=== PATIENT | female | born 1985 | race African-American/Black ===

== ENCOUNTER 2017-01-04 01:15 | Emergency (ER) | payer MEDICAID ==
[~2017-01-04] VITALS: Ht 160 cm; Wt 147.9 kg
[2017-01-04 01:19] VITALS: BP 136/94; PULSE 97; RESP 16; TEMP 98; O2SAT 99
[2017-01-04] MEDS ORDERED: ALBU1.25 NEB (03:48)
[2017-01-04] MEDS ORDERED: VENTAER INH (03:48)
[2017-01-04] MEDS ORDERED: SODIUM CHLORIDE 0.9% FLUSH 5 ML FLUSH IVF PRN (04:15)
[2017-01-04 04:27] LABS: AUTOMATED NEUTROPHIL # 3.7 TH/MM3 (1.8-7.7); BASOPHIL # 0.1 TH/MM3 (0-0.2); BASOPHIL % 1.4 % (0.0-2.0); EOSINOPHIL # 0.3 TH/MM3 (0-0.4); EOSINOPHIL % 3.5 % (0.0-4.0); HEMO FLAGS DIFF FINAL; LYMPH % 42.9 % (9.0-44.0); LYMPHOCYTE # 3.4 TH/MM3 (1.0-4.8); MEAN CELL VOLUME 88.8 FL (80.0-100.0); MEAN CORPUSCULAR HGB CONC 33.8 % (32.0-36.0); MONO % 6.2 % (0.0-8.0); PLATELET COUNT 266 TH/MM3 (150-450); RED BLOOD COUNT 4.05 MIL/MM3 (4.00-5.30); RED CELL DISTRIBUTION WIDTH 14.7 % (11.6-17.2)
[2017-01-04 04:44] LABS: APTT (PATIENT) 28.7 SEC (24.3-30.1); PROTHROMBIN TIME - PATIENT 11.3 SEC (9.8-11.6)
[2017-01-04 04:56] LABS: ALKALINE PHOSPHATASE 65 U/L (45-117); ALT (GPT) 12 U/L (10-53); ANION GAP 9 MEQ/L (5-15); AST (GOT) 10 U/L (15-37); BICARBONATE 24.8 MEQ/L (21.0-32.0); BLOOD UREA NITROGEN 10 MG/DL (7-18); CHLORIDE 106 MEQ/L (98-107); GLOMERULAR FILTRATION RATE 81 ML/MIN (>89); MAGNESIUM 2.2 MG/DL (1.5-2.5); SODIUM (NA) 140 MEQ/L (136-145); TOTAL BILIRUBIN ADULT 0.5 MG/DL (0.2-1.0)
[2017-01-04 04:58] LABS: CREATINE KINASE 93 U/L (26-192); POTASSIUM 3.8 MEQ/L (3.5-5.1)
[2017-01-04 05:25] VITALS: BP_SYST 122; BP_SYST 124; BP_DIAS 60; PULSE 68; PULSE 69; RESP 18; O2SAT 100
--- NOTE | 2017-01-04 05:50 | RADRPT ---
EXAM DATE/TIME: 01/04/2017 05:09 [facility] COMPARISON: No previous studies available for comparison. INDICATIONS : Chest pain. MEDICAL HISTORY : None. SURGICAL HISTORY : None. ENCOUNTER: Initial ACUITY: 1 day PAIN SCORE: 7/10 LOCATION: Bilateral chest FINDINGS: A single view of the chest demonstrates the lungs to be symmetrically aerated without evidence of mas s, infiltrate or effusion. The cardiomediastinal contours are unremarkable. Osseous structures are intact. CONCLUSION: Normal examination. Jamarcus Manzano MD on January 04, 2017 at 5:48 Board Certified Radiologist. This report was verified electronically.
[2017-01-04] MEDS ORDERED: PRED20 PO (06:29)
--- NOTE | 2017-01-04 06:29 | PD ---
HPI Chief Complaint: Chest Pain Time Seen by Provider: 04:03 Travel History International Travel<30 days: No Contact w/Intl Traveler<30days: No Traveled to known affect area: No History of Present Illness HPI The patient is a 31 year old female who presents to the [facility] emergency department with a history of pressure in the anterior neck that she reports began 3 days ago. She reports that this evening it began to radiate down into her chest and woke her up. The patient reports that over the last 2 days she has used her inhaler more frequently. She denies having any cough or congestion otherwise. The patient reports that she has had a stress test done his past year in preparation for having a gastric sleeve for weight loss. She reports that the stress test was negative. She reports that she underwent a gastric sleeve on September 22, 2016. She denies having any problems with acid reflux or heartburn. She denies having any nausea, vomiting, or diarrhea. The patient does however report that her neck pressure is similar to when she had a thyroid abnormality previously. She reports that a year ago was last checked and found to be normal. She denies having any significant hot or cold sensitivities. The patient reports that her last bowel movement was yesterday. The patient denies any recent fevers, cough, congestion,abdominal pain, vomiting, diarrhea, urinary symptoms, or neurologic symptoms. COUNT INCLUDES THE [facility] Past Medical History Narrative Medical The patient's past medical history is significant for a thyroid abnormality first diagnosed 3 years ago and resolved on its own. The patient has a history of anxiety, asthma, depression, obesity. Asthma: Yes Anxiety: Yes Depression: Yes Gastrointestinal Disorders: Yes (gastric sleeve) Immunizations Current: Yes Influenza Vaccination: No ?: Not LMP: 12/10/17 : 2 Para: 2 Past Surgical History Narrative Surgical The patient's past surgical history is significant for a gastric sleeve, C- section 2. Social History Alcohol Use: Yes (rarely) Tobacco Use: Yes (6 cigarettes per day) Substance Use: No Allergies-Medications (Allergen,Severity, Reaction): Coded Allergies: No Known Allergies (Unverified , 01/04/17) Reported Meds & Prescriptions Reported Meds & Active Scripts Active Reported Albuterol Neb (Albuterol Sulfate) 1.25 Mg/3 Ml Neb 1.25 Mg NEB TID NEB PRN Ventolin Hfa 18 GM Inh (Albuterol Sulfate) 90 Mcg/Act Aer 2 Puff INH Q4-6H PRN Review of Systems Except as stated in HPI: all other systems reviewed are Neg General / Constitutional: No: Fever Eyes: No: Visual changes HENT: No: Headaches Cardiovascular: Positive: Chest Pain or Discomfort, Dyspnea on exertion Respiratory: Positive: Wheezing, No: Shortness of Breath Gastrointestinal: No: Nausea, Vomiting, Diarrhea, Abdominal Pain Genitourinary: No: Dysuria Musculoskeletal: No: Pain Skin: No Rash Neurologic: No: Weakness Psychiatric: No: Depression Endocrine: No: Polydipsia Hematologic/Lymphatic: No: Easy Bruising Physical Exam Narrative General: The patient is a well-developed well-nourished female in no acute distress. Head and Neck exam: Head is normocephalic atraumatic. Eyes: EOMI, pupils are equal round and reactive to light. Nose: Midline septum with pink mucous membranes Mouth: Dentition unremarkable. Moist mucus membranes. Posterior oropharynx is not erythematous. No tonsillar hypertrophy. Uvula midline. Airway patent. Neck: No palpable lymphadenopathy. No nuchal rigidity. No thyromegaly. Cardiovascular: Regular rate and rhythm without murmurs, gallops, or rubs. Lungs: Clear to auscultation bilaterally. No wheezes, rhonchi, or rales. Abdomen: Soft, without tenderness to palpation in all 4 quadrants of the abdomen. No guarding, rebound, or rigidity. normal bowel sounds are audible. No tenderness on palpation of McBurney's point. Negative Funes's sign. Extremities: No clubbing, cyanosis, or edema. No calf tenderness on palpation. Back: No spinous process tenderness to palpation. No costovertebral angle tenderness to palpation. Neurologic Exam: Grossly nonfocal. Skin Exam: No rash noted. Intact skin that is warm and dry. Data Data Last Documented VS Vital Signs Date Time Temp Pulse Resp B/P Pulse Ox O2 Delivery O2 Flow Rate FiO2 01/04/17 05:25 68 122/60 100 Room Air 01/04/17 05:25 18 01/04/17 01:19 98.0 Orders Electrocardiogram (01/04/17 01:28) B-Type Natriuretic Peptide (01/04/17 04:04) Ckmb (Isoenzyme) Profile (01/04/17 04:04) Complete Blood Count With Diff (01/04/17 04:04) Comprehensive Metabolic Panel (01/04/17 04:04) D-Dimer (01/04/17 04:04) Magnesium (Mg) (01/04/17 04:04) Prothrombin Time / Inr (Pt) (01/04/17 04:04) Act Partial Throm Time (Ptt) (01/04/17 04:04) Troponin I (01/04/17 04:04) Lipase (01/04/17 04:04) Chest, Single Ap (01/04/17 04:04) Ecg Monitoring (01/04/17 04:04) Bilateral Bp Monitoring (01/04/17 04:04) Iv Access Insert/Monitor (01/04/17 04:04) Oximetry (01/04/17 04:04) Oxygen Administration (01/04/17 04:04) Sodium Chloride 0.9% Flush (Ns Flush) (01/04/17 04:15) Ed Urine Pregnancytest Poc (01/04/17 04:04) Thyroid Stimulating Hormone (01/04/17 05:27) Labs Laboratory Tests Test 01/04/17 04:15 White Blood Count 8.0 TH/MM3 Red Blood Count 4.05 MIL/MM3 Hemoglobin 12.1 GM/DL Hematocrit 36.0 % Mean Corpuscular Volume 88.8 FL Mean Corpuscular Hemoglobin 30.0 PG Mean Corpuscular Hemoglobin 33.8 % Concent Red Cell Distribution Width 14.7 % Platelet Count 266 TH/MM3 Mean Platelet Volume 9.1 FL Neutrophils (%) (Auto) 46.0 % Lymphocytes (%) (Auto) 42.9 % Monocytes (%) (Auto) 6.2 % Eosinophils (%) (Auto) 3.5 % Basophils (%) (Auto) 1.4 % Neutrophils # (Auto) 3.7 TH/MM3 Lymphocytes # (Auto) 3.4 TH/MM3 Monocytes # (Auto) 0.5 TH/MM3 Eosinophils # (Auto) 0.3 TH/MM3 Basophils # (Auto) 0.1 TH/MM3 CBC Comment DIFF FINAL Differential Comment Prothrombin Time 11.3 SEC Prothromb Time International 1.0 RATIO Ratio Activated Partial 28.7 SEC Thromboplast Time D-Dimer Quantitative (PE/DVT) 0.22 MG/L FEU Sodium Level 140 MEQ/L Potassium Level 3.8 MEQ/L Chloride Level 106 MEQ/L Carbon Dioxide Level 24.8 MEQ/L Anion Gap 9 MEQ/L Blood Urea Nitrogen 10 MG/DL Creatinine 0.82 MG/DL Estimat Glomerular Filtration 81 ML/MIN Rate Random Glucose 77 MG/DL Calcium Level 9.1 MG/DL Magnesium Level 2.2 MG/DL Total Bilirubin 0.5 MG/DL Aspartate Amino Transf 10 U/L (AST/SGOT) Alanine Aminotransferase 12 U/L (ALT/SGPT) Alkaline Phosphatase 65 U/L Total Creatine Kinase 93 U/L Troponin I LESS THAN 0.02 NG/ML B-Type Natriuretic Peptide 22 PG/ML Total Protein 7.8 GM/DL Albumin 3.5 GM/DL Lipase 146 U/L Thyroid Stimulating Hormone 3.760 uIU/ML 3rd Gen [facility] Medical Decision Making Medical Screen Exam Complete: Yes Emergency Medical Condition: Yes Medical Record Reviewed: Yes Interpretation(s) Last Impressions Chest X-Ray 01/04/17 0404 Signed Impressions: Service Date/Time: Wednesday, January 04, 2017 05:09 - CONCLUSION: Normal examination. Jamarcus Manzano MD Differential Diagnosis Endocrine abnormalities such as thyroid abnormality, versus pulmonary embolism, versus acute coronary syndrome, versus asthma exacerbation, versus pneumonia Narrative Course During the course of the patients emergency department visit, the patients history, examination, and differential diagnosis were reviewed with the patient. The patient had IV access obtained and blood work sent for analysis. The patient was placed on a engine monitor with oximetry and blood pressure monitoring. The patient had an EKG done on arrival that shows a sinus rhythm heart rate of 82, no acute ST segment elevation, T waves inverted in V1, lead 3. The patients laboratory studies were reviewed and remarkable for a CBC that is within normal limits, CMP is remarkable for a GFR of 81, AST 10, CPK 93, troponin I less than 0.02, BNP is 22, TSH is elevated at 3.76, lipase 146. PT PTT within normal limits, d-dimer 0.2 to decrease the likelihood of pulmonary embolism in this patient with no other significant risk factors. Radiology studies were reviewed and remarkable for a chest x-ray that shows no acute abnormality. I suspect that the patient's symptoms are related to an elevated TSH, however the patient's TSH is only 0.0 2. elevated above normal. The patient was instructed to follow-up with her primary care physician for a full thyroid panel. The patient additionally reports that she has been using her inhaler more frequently. This could be part of the cause of the pressure that she was feeling. The patient will be given a prescription for short course of prednisone. The patient is resting comfortably and feels better, is alert and in no distress. The patients results and examination findings were discussed with the patient. The repeat examination is unremarkable and benign. The history, exam, diagnostic testing, and current condition do not suggest any significant pathology to warrant further testing, continued ED treatment, admission, or surgical evaluation at this point. The vital signs have been stable. The patient does not have uncontrollable pain, intractable vomiting, or other significant symptoms. The patient's condition is stable and appropriate for discharge. The patient will pursue further outpatient evaluation with a primary care physician or other designated or consulting physician as indicated in the discharge instructions. The patient expressed understanding and was agreeable with this plan. Diagnosis Primary Impression: Asthma exacerbation Additional Impression: Elevated TSH Referrals: Octavio Peralta MD 2 days Patient Instructions: Asthma (ED), General Instructions, Hypothyroidism (ED) Additional Instructions: The patient will need a repeat thyroid panel done within the next week. The patient is instructed to follow-up with her primary care physician for reexamination in the next 2 days. Med/Other Pt SpecificInfo: Prescription(s) given Scripts Prednisone 20 Mg Tab20 Mg PO BID #10 TAB Ref 0 Prov:Makenzie Wong MD 01/04/17 Disposition: 01 DISCHARGE HOME Condition: Stable Makenzie Wong MD Jan 04, 2017 06:29
--- NOTE | 2017-01-04 10:03 | EKG ---
Date Performed: 01/04/2017 Time Performed: 01:42:53 PTAGE: 31 years EKG: Sinus rhythm POSSIBLE RIGHT VENTRICULAR CONDUCTION DELAY BORDERLINE ECG NO PREVIOUS TRACING DOCTOR: Matt Galeas Interpretating Date/Time 01/04/2017 10:00:40
== END 2017-01-04 06:49 | disposition home or self-care (01) ==
LOC: NEPC 06:06
DX: J45.901 Unspecified asthma with (acute) exacerbation (principal); R94.31 Abnormal electrocardiogram [ECG] [EKG]; F17.210 Nicotine dependence, cigarettes, uncomplicated; R07.9 Chest pain, unspecified; R79.89 Other specified abnormal findings of blood chemistry; Z98.84 Bariatric surgery status
CPT/HCPCS: 71010; 80053; 82550; 83690; 83735; 83880; 84443; 84484; 84703; 85025; 85379; 85610; 85730; 93005

== ENCOUNTER 2017-03-23 23:19 | Emergency (ER) | payer MEDICAID ==
[~2017-03-23 23:19] MED LIST: ALBU1.25 NEB; PRED20 PO; VENTAER INH
[2017-03-23 23:20] VITALS: BP 133/93; PULSE 92; RESP 16; TEMP 98.6; O2SAT 96
[2017-03-23] MEDS ORDERED: VARE.5 PO (23:45)
[2017-03-23 23:56] VITALS: BP 140/86; PULSE 83; RESP 16; O2SAT 99
--- NOTE | 2017-03-24 00:14 | PD ---
HPI Chief Complaint: Chest Pain Time Seen by Provider: 00:02 Travel History International Travel<30 days: No Contact w/Intl Traveler<30days: No Traveled to known affect area: No History of Present Illness HPI 31yo F with PMH of obesity presents to the ED with c/o bilateral upper back pain for 3-4 days. Pain is worst with palpation and movement. Pt also with midsternal chest pain that is sharp and nonradiating for 3-4 days. Chest pain has improved on its own and feels different from back pain. Denies any fever, trauma, sob, n/v, abdominal pain, focal weakness or numbness. Denies any DVT/PE , oral contraception PFSH Past Medical History Asthma: Yes Anxiety: Yes Depression: Yes Gastrointestinal Disorders: Yes (gastric sleeve) Immunizations Current: Yes Influenza Vaccination: No ?: Not LMP: MAR 09 2017 : 2 Para: 2 Past Surgical History Abdominal Surgery: Yes (SLEEVE WEIGHLOSS IN DEC) Section: Yes (X 2) Social History Alcohol Use: Yes (rarely) Tobacco Use: Yes (6 cigarettes per day) Substance Use: No Allergies-Medications (Allergen,Severity, Reaction): Coded Allergies: No Known Allergies (Unverified , 03/23/17) Reported Meds & Prescriptions Reported Meds & Active Scripts Active Reported Chantix (Varenicline) 0.5 Mg Tab 0.5 Mg PO DAILY Days 1-3 Review of Systems Except as stated in HPI: all other systems reviewed are Neg Physical Exam Narrative GENERAL: 31yo F not in distress. SKIN: Focused skin assessment warm/dry. HEAD: Atraumatic. Normocephalic. CARDIOVASCULAR: Regular rate and rhythm. No murmur appreciated. RESPIRATORY: No accessory muscle use. Clear to auscultation. Breath sounds equal bilaterally. GASTROINTESTINAL: Abdomen soft, non-tender, nondistended. No rebound tenderness or guarding. MUSCULOSKELETAL: No obvious deformities. No clubbing. No cyanosis. No edema. No calf tenderness. NEUROLOGICAL: Awake and alert. No obvious cranial nerve deficits. Motor grossly within normal limits. Normal speech. PSYCHIATRIC: Appropriate mood and affect; insight and judgment normal. Data Data Last Documented VS Vital Signs Date Time Temp Pulse Resp B/P Pulse Ox O2 Delivery O2 Flow Rate FiO2 03/24/17 02:00 76 16 111/59 99 Room Air 03/23/17 23:20 98.6 Orders Electrocardiogram (03/24/17 00:10) Basic Metabolic Panel (Bmp) (03/24/17 00:10) Ckmb (Isoenzyme) Profile (03/24/17 00:10) Complete Blood Count With Diff (03/24/17 00:10) D-Dimer (03/24/17 00:10) Magnesium (Mg) (03/24/17 00:10) Prothrombin Time / Inr (Pt) (03/24/17 00:10) Act Partial Throm Time (Ptt) (03/24/17 00:10) Troponin I (03/24/17 00:10) Chest, Single Ap (03/24/17 00:10) Ecg Monitoring (03/24/17 00:10) Iv Access Insert/Monitor (03/24/17 00:10) Ibuprofen (Motrin) (03/24/17 00:15) Diazepam (Valium) (03/24/17 00:15) CKMB (03/24/17:23) CKMB% (03/24/17:23) Labs Laboratory Tests Test 03/24/17:23 White Blood Count 7.7 TH/MM3 Red Blood Count 3.74 MIL/MM3 Hemoglobin 10.9 GM/DL Hematocrit 32.9 % Mean Corpuscular Volume 87.9 FL Mean Corpuscular Hemoglobin 29.3 PG Mean Corpuscular Hemoglobin 33.3 % Concent Red Cell Distribution Width 13.4 % Platelet Count 301 TH/MM3 Mean Platelet Volume 7.7 FL Neutrophils (%) (Auto) 48.8 % Lymphocytes (%) (Auto) 39.0 % Monocytes (%) (Auto) 7.4 % Eosinophils (%) (Auto) 3.8 % Basophils (%) (Auto) 1.0 % Neutrophils # (Auto) 3.7 TH/MM3 Lymphocytes # (Auto) 3.0 TH/MM3 Monocytes # (Auto) 0.6 TH/MM3 Eosinophils # (Auto) 0.3 TH/MM3 Basophils # (Auto) 0.1 TH/MM3 CBC Comment DIFF FINAL Differential Comment Prothrombin Time 11.1 SEC Prothromb Time International 1.0 RATIO Ratio Activated Partial 28.5 SEC Thromboplast Time D-Dimer Quantitative (PE/DVT) 0.25 MG/L FEU Sodium Level 141 MEQ/L Potassium Level 3.9 MEQ/L Chloride Level 105 MEQ/L Carbon Dioxide Level 27.7 MEQ/L Anion Gap 8 MEQ/L Blood Urea Nitrogen 12 MG/DL Creatinine 0.87 MG/DL Estimat Glomerular Filtration 91 ML/MIN Rate Random Glucose 86 MG/DL Calcium Level 8.7 MG/DL Magnesium Level 2.1 MG/DL Total Creatine Kinase 125 U/L Creatine Kinase MB LESS THAN 0.5 NG/ML Troponin I LESS THAN 0.02 NG/ML MDM Medical Decision Making Medical Screen Exam Complete: Yes Emergency Medical Condition: Yes Interpretation(s) EKG: NSR 78bpm. Normal axis. No ST segment elevation or depression. Differential Diagnosis Musculoskeletal pain vs. atypical chest pain Narrative Course 31yo F with musculoskeletal pain. Labs reviewed, no leukocytosis. H/H mildly decrease at10.9/32.9. Troponin negative. D-dimer negative. Do not think chest pain is cardiac. CXR normal. Pt given valium and ibuprofen which helped with the pain. Return precautions given. Diagnosis Primary Impression: Atypical chest pain Patient Instructions: General Instructions Departure Forms: Tests/Procedures Additional Instructions: Please follow up with your PMD in 1-2 days. Return to the ED if symptoms worsen. Med/Other Pt SpecificInfo: Prescription(s) given Scripts Ibuprofen 600 Mg Gpc411 Mg PO Q8H PRN (PAIN) #20 TAB Ref 0 Prov:Tosin Cordova DO 03/24/17 Disposition: 01 DISCHARGE HOME Condition: Stable Tosin Cordova DO Mar 24, 2017 00:14
[2017-03-24] MEDS ORDERED: IBUPROFEN 600 MG TAB PO ONE (00:15)
[2017-03-24] MEDS ORDERED: DIAZEPAM 5 MG TAB PO ONE (00:15)
[2017-03-24 00:32] LABS: AUTOMATED NEUTROPHIL # 3.7 TH/MM3 (1.8-7.7); BASOPHIL # 0.1 TH/MM3 (0-0.2); EOSINOPHIL # 0.3 TH/MM3 (0-0.4); EOSINOPHIL % 3.8 % (0.0-4.0); HEMATOCRIT 32.9 % (35.0-46.0); HEMO FLAGS DIFF FINAL; MEAN CELL VOLUME 87.9 FL (80.0-100.0); MEAN CORPUSCULAR HEMOGLOBIN 29.3 PG (27.0-34.0); MEAN CORPUSCULAR HGB CONC 33.3 % (32.0-36.0); MONO % 7.4 % (0.0-8.0); NEUT % 48.8 % (16.0-70.0); PLATELET COUNT 301 TH/MM3 (150-450); RED BLOOD COUNT 3.74 MIL/MM3 (4.00-5.30); RED CELL DISTRIBUTION WIDTH 13.4 % (11.6-17.2); WHITE BLOOD COUNT 7.7 TH/MM3 (4.0-11.0)
--- NOTE | 2017-03-24 00:38 | RADRPT ---
EXAM DATE/TIME: 03/24/2017 00:30 [facility] COMPARISON: CHEST SINGLE AP, January 04, 2017, 5:09. INDICATIONS : Back pain. MEDICAL HISTORY : None. SURGICAL HISTORY : None. ENCOUNTER: Initial ACUITY: 1 day PAIN SCORE: 3/10 LOCATION: Bilateral Back FINDINGS: A single view of the chest demonstrates the lungs to be symmetrically aerated without evidence of mas s, infiltrate or effusion. The cardiomediastinal contours are unremarkable. Osseous structures are intact. CONCLUSION: Normal examination. Nikhil Yañez MD on March 24, 2017 at 0:37 Board Certified Radiologist. This report was verified electronically.
[2017-03-24 00:49] LABS: APTT (PATIENT) 28.5 SEC (24.3-30.1); PROTHROMBIN TIME - PATIENT 11.1 SEC (9.8-11.6)
[2017-03-24 01:27] LABS: ANION GAP 8 MEQ/L (5-15); BICARBONATE 27.7 MEQ/L (21.0-32.0); BLOOD UREA NITROGEN 12 MG/DL (7-18); CHLORIDE 105 MEQ/L (98-107); CREATINE KINASE 125 U/L (26-192); GLOMERULAR FILTRATION RATE 91 ML/MIN (>89); MAGNESIUM 2.1 MG/DL (1.5-2.5); SODIUM (NA) 141 MEQ/L (136-145)
[2017-03-24 01:32] LABS: POTASSIUM 3.9 MEQ/L (3.5-5.1)
[2017-03-24 01:45] LABS: CKMB LESS THAN 0.5 NG/ML (0.5-3.6)
[2017-03-24 02:00] VITALS: BP 111/59; PULSE 76; RESP 16; O2SAT 99
[2017-03-24] MEDS ORDERED: IBUP-232 PO (02:37)
--- NOTE | 2017-03-24 14:00 | EKG ---
Date Performed: 03/24/2017 Time Performed: 00:38:48 PTAGE: 31 years EKG: Sinus rhythm NORMAL ECG Compared to prior tracing no significant change PREVIOUS TRACING : 01/04/2017 01.42 DOCTOR: Florentin Sevilla Interpretating Date/Time 03/24/2017 13:56:26
== END 2017-03-24 02:48 | disposition home or self-care (01) ==
LOC: NEPC 23:19
DX: R07.89 Other chest pain (principal); J45.909 Unspecified asthma, uncomplicated; Z72.0 Tobacco use
CPT/HCPCS: 71010; 80048; 82550; 82552; 83735; 84484; 85025; 85379; 85610; 85730; 93005

== ENCOUNTER 2017-06-29 23:20 | Emergency (ER) | payer MEDICAID ==
[~2017-06-29] VITALS: Ht 160 cm; Wt 136.0 kg
[~2017-06-29 23:20] MED LIST changes: -ALBU1.25 NEB; +IBUP-232 PO; -PRED20 PO; +VARE.5 PO; -VENTAER INH
[2017-06-29 23:23] VITALS: BP 149/66; PULSE 86; RESP 16; TEMP 98.7; O2SAT 100
--- NOTE | 2017-06-29 23:56 | PD ---
HPI Chief Complaint: Chest Pain Time Seen by Provider: 23:34 Travel History International Travel<30 days: No Contact w/Intl Traveler<30days: No Traveled to known affect area: No History of Present Illness HPI Patient is a 31-year-old female presents emergency Department with chest pain in her chest. She states she's been evaluated for this before and continues to go. She states an outside facility she was being evaluated for blood clots but is never needed to be on blood thinners before. States that she had had CAT scans but apparently was negative for PEs in the past. Endorses a history of smoking denies blood pressure denies high cholesterol. Denies early family history of heart disease. Denies use of oral contraception. PFSH Past Medical History Asthma: Yes Anxiety: Yes Depression: Yes Diminished Hearing: No Gastrointestinal Disorders: Yes (GASTRIC SLEEVE) Respiratory: Yes (ASTHMA) Immunizations Current: Yes Tetanus Vaccination: Unknown Influenza Vaccination: No ?: Not LMP: 06/10/17 : 2 Para: 2 Past Surgical History Abdominal Surgery: Yes (SLEEVE WEIGHLOSS IN DEC) Section: Yes (X 2) Social History Alcohol Use: Yes (OCCASSIONALLY) Tobacco Use: Yes (1/2 PPD) Substance Use: No Allergies-Medications (Allergen,Severity, Reaction): Coded Allergies: No Known Allergies (Unverified , 03/23/17) Reported Meds & Prescriptions Reported Meds & Active Scripts Active No Active Prescriptions or Reported Medications Review of Systems Except as stated in HPI: all other systems reviewed are Neg Physical Exam Narrative GENERAL: Well-developed well-nourished, morbidly obese in no distress. SKIN: Focused skin assessment warm/dry. HEAD: Atraumatic. Normocephalic. EYES: Pupils equal and round. No scleral icterus. No injection or drainage. ENT: No nasal bleeding or discharge. Mucous membranes pink and moist. NECK: Trachea midline. No JVD. CARDIOVASCULAR: Regular rate and rhythm. No murmur appreciated. MG ER, 2+ bilateral equal pulses in all 4 extremities. RESPIRATORY: No accessory muscle use. Clear to auscultation. Breath sounds equal bilaterally. GASTROINTESTINAL: Abdomen soft, non-tender, nondistended. Hepatic and splenic margins not palpable. MUSCULOSKELETAL: No obvious deformities. No clubbing. No cyanosis. No edema. NEUROLOGICAL: Awake and alert. No obvious cranial nerve deficits. Motor grossly within normal limits. Normal speech. PSYCHIATRIC: Appropriate mood and affect; insight and judgment normal. Data Data Last Documented VS Vital Signs Date Time Temp Pulse Resp B/P (MAP) Pulse Ox O2 Delivery O2 Flow Rate FiO2 06/30/17 02:47 06/30/17 02:03 62 18 100 Room Air 06/29/17 23:23 98.7 Orders Orders Electrocardiogram (06/29/17 23:55) Ckmb (Isoenzyme) Profile (06/29/17 23:55) Complete Blood Count With Diff (06/29/17 23:55) Comprehensive Metabolic Panel (06/29/17 23:55) D-Dimer (06/29/17 23:55) Magnesium (Mg) (06/29/17 23:55) Prothrombin Time / Inr (Pt) (06/29/17 23:55) Act Partial Throm Time (Ptt) (06/29/17 23:55) Troponin I (06/29/17 23:55) Chest, Single Ap (06/29/17 23:55) Ecg Monitoring (06/29/17 23:55) Iv Access Insert/Monitor (06/29/17 23:55) Oximetry (06/29/17 23:55) Oxygen Administration (06/29/17 23:55) Sodium Chloride 0.9% Flush (Ns Flush) (06/30/17 00:00) Ed Urine Pregnancytest Poc (06/29/17 23:55) CKMB (06/30/17 00:40) CKMB% (06/30/17 00:40) Ketorolac Inj (Toradol Inj) (06/30/17 01:45) Labs Laboratory Tests Test 06/30/17 00:40 06/30/17 00:45 White Blood Count 7.9 TH/MM3 Red Blood Count 4.03 MIL/MM3 Hemoglobin 11.6 GM/DL Hematocrit 35.4 % Mean Corpuscular Volume 87.8 FL Mean Corpuscular Hemoglobin 28.9 PG Mean Corpuscular Hemoglobin Concent 32.9 % Red Cell Distribution Width 15.0 % Platelet Count 260 TH/MM3 Mean Platelet Volume 7.6 FL Neutrophils (%) (Auto) 45.1 % Lymphocytes (%) (Auto) 42.4 % Monocytes (%) (Auto) 7.6 % Eosinophils (%) (Auto) 4.0 % Basophils (%) (Auto) 0.9 % Neutrophils # (Auto) 3.6 TH/MM3 Lymphocytes # (Auto) 3.3 TH/MM3 Monocytes # (Auto) 0.6 TH/MM3 Eosinophils # (Auto) 0.3 TH/MM3 Basophils # (Auto) 0.1 TH/MM3 CBC Comment DIFF FINAL Differential Comment Blood Urea Nitrogen 12 MG/DL Creatinine 0.80 MG/DL Random Glucose 84 MG/DL Total Protein 7.3 GM/DL Albumin 3.3 GM/DL Calcium Level 8.3 MG/DL Magnesium Level 2.0 MG/DL Alkaline Phosphatase 64 U/L Aspartate Amino Transf (AST/SGOT) 9 U/L Alanine Aminotransferase (ALT/SGPT) 15 U/L Total Bilirubin 0.3 MG/DL Sodium Level 141 MEQ/L Potassium Level 3.6 MEQ/L Chloride Level 107 MEQ/L Carbon Dioxide Level 27.1 MEQ/L Anion Gap 7 MEQ/L Estimat Glomerular Filtration Rate 101 ML/MIN Total Creatine Kinase 121 U/L Creatine Kinase MB 1.0 NG/ML Troponin I LESS THAN 0.02 NG/ML Prothrombin Time 10.7 SEC Prothromb Time International Ratio 1.0 RATIO Activated Partial Thromboplast Time 25.9 SEC D-Dimer Quantitative (PE/DVT) 0.35 MG/L FEU [facility] Medical Decision Making Medical Screen Exam Complete: Yes Emergency Medical Condition: Yes Differential Diagnosis ACS unlikely, PE unlikely, AMI unlikely. Atypical chest pain, GERD, pleurisy. Narrative Course Patient roomed emergency department, she is low risk for ACS, EKG troponin and d -dimer negative. Remainder of CBC and BMP are within normal limits. Chest x- ray negative. At this time she stable for discharge for outpatient workup. She is feeling better after medications. Diagnosis Primary Impression: Atypical chest pain Referrals: [facility] Additional Instructions: Follow up with your regular physician or [place] [facility]. Scripts No Active Prescriptions or Reported Meds Disposition: 01 DISCHARGE HOME Condition: Stable Jani Hong MD Jun 29, 2017 23:56
[2017-06-30] MEDS ORDERED: SODIUM CHLORIDE 0.9% FLUSH 10 ML FLUSH IVF PRN
--- NOTE | 2017-06-30 00:36 | RADRPT ---
EXAM DATE/TIME: 06/30/2017 00:26 [facility] COMPARISON: CHEST SINGLE AP, March 24, 2017, 0:30. INDICATIONS : Chest pain for 3 days MEDICAL HISTORY : None. SURGICAL HISTORY : None. ENCOUNTER: Initial ACUITY: 3 days PAIN SCORE: 5/10 LOCATION: Bilateral chest FINDINGS: A single view of the chest demonstrates the lungs to be symmetrically aerated without evidence of mas s, infiltrate or effusion. The cardiomediastinal contours are unremarkable. Osseous structures are intact. CONCLUSION: No acute cardiopulmonary process. Nir Walker MD on June 30, 2017 at 0:35 Board Certified Radiologist. This report was verified electronically.
[2017-06-30 00:40] VITALS: BP 121/69; PULSE 66; RESP 18; O2SAT 100
[2017-06-30 01:06] LABS: AUTOMATED NEUTROPHIL # 3.6 TH/MM3 (1.8-7.7); BASOPHIL # 0.1 TH/MM3 (0-0.2); BASOPHIL % 0.9 % (0.0-2.0); EOSINOPHIL # 0.3 TH/MM3 (0-0.4); HEMATOCRIT 35.4 % (35.0-46.0); HEMO FLAGS DIFF FINAL; LYMPH % 42.4 % (9.0-44.0); LYMPHOCYTE # 3.3 TH/MM3 (1.0-4.8); MEAN CELL VOLUME 87.8 FL (80.0-100.0); MEAN CORPUSCULAR HEMOGLOBIN 28.9 PG (27.0-34.0); MEAN CORPUSCULAR HGB CONC 32.9 % (32.0-36.0); MONO % 7.6 % (0.0-8.0); NEUT % 45.1 % (16.0-70.0); PLATELET COUNT 260 TH/MM3 (150-450); RED BLOOD COUNT 4.03 MIL/MM3 (4.00-5.30); WHITE BLOOD COUNT 7.9 TH/MM3 (4.0-11.0)
[2017-06-30 01:16] LABS: APTT (PATIENT) 25.9 SEC (24.3-30.1); PROTHROMBIN TIME - PATIENT 10.7 SEC (9.8-11.6)
[2017-06-30 01:18] LABS: ALT (GPT) 15 U/L (10-53); ANION GAP 7 MEQ/L (5-15); AST (GOT) 9 U/L (15-37); BICARBONATE 27.1 MEQ/L (21.0-32.0); BLOOD UREA NITROGEN 12 MG/DL (7-18); CHLORIDE 107 MEQ/L (98-107); GLOMERULAR FILTRATION RATE 101 ML/MIN (>89); POTASSIUM 3.6 MEQ/L (3.5-5.1); SODIUM (NA) 141 MEQ/L (136-145)
[2017-06-30 01:21] LABS: ALKALINE PHOSPHATASE 64 U/L (45-117); CREATINE KINASE 121 U/L (26-192); TOTAL BILIRUBIN ADULT 0.3 MG/DL (0.2-1.0)
[2017-06-30] MEDS ORDERED: KETOROLAC TROMETHAMINE 30 MG/ML (IVP) VIAL IV PUSH ONE (01:45)
[2017-06-30 02:03] VITALS: BP 145/70; PULSE 62; RESP 18; O2SAT 100
--- NOTE | 2017-06-30 20:30 | EKG ---
Date Performed: 06/29/2017 Time Performed: 23:44:26 PTAGE: 31 years EKG: Sinus rhythm NORMAL ECG PREVIOUS TRACING : 03/24/2017 00.38 Compared to prior tracing no significant change DOCTOR: Evan Rai Interpretating Date/Time 06/30/2017 20:29:20
== END 2017-06-30 02:48 | disposition home or self-care (01) ==
LOC: NEPE 23:20
DX: R07.89 Other chest pain (principal); J45.909 Unspecified asthma, uncomplicated; F17.200 Nicotine dependence, unspecified, uncomplicated
CPT/HCPCS: 71010; 80053; 82550; 82552; 83735; 84484; 84703; 85025; 85379; 85610; 85730; 93005; 96374; 99285; J1885

== ENCOUNTER 2017-09-21 14:05 | Emergency (ER) | payer MEDICAID ==
[2017-09-21] MEDS ORDERED: IOHEXOL 350 MG/ML 10 ML VIAL (for RAD DIAG) IVCONTRAST ONE ×2 (14:06→20:50)
[2017-09-21 14:09] VITALS: BP 165/75; PULSE 74; RESP 12; TEMP 98.6; O2SAT 99
[2017-09-21] MEDS ORDERED: SODIUM CHLORIDE 0.9% FLUSH 10 ML FLUSH IV FLUSH PRN (14:45)
[2017-09-21 15:49] LABS: AUTOMATED NEUTROPHIL # 3.3 TH/MM3 (1.8-7.7); BASOPHIL % 0.7 % (0.0-2.0); EOSINOPHIL # 0.2 TH/MM3 (0-0.4); EOSINOPHIL % 3.1 % (0.0-4.0); HEMATOCRIT 33.8 % (35.0-46.0); HEMO FLAGS DIFF FINAL; LYMPH % 34.1 % (9.0-44.0); LYMPHOCYTE # 2.1 TH/MM3 (1.0-4.8); MEAN CELL VOLUME 90.1 FL (80.0-100.0); MEAN CORPUSCULAR HEMOGLOBIN 29.7 PG (27.0-34.0); MEAN CORPUSCULAR HGB CONC 32.9 % (32.0-36.0); MONO % 6.8 % (0.0-8.0); NEUT % 55.3 % (16.0-70.0); PLATELET COUNT 275 TH/MM3 (150-450); RED BLOOD COUNT 3.75 MIL/MM3 (4.00-5.30); RED CELL DISTRIBUTION WIDTH 14.9 % (11.6-17.2); WHITE BLOOD COUNT 6.1 TH/MM3 (4.0-11.0)
[2017-09-21 15:50] LABS: BLOOD, URINE NEG (NEG); COMMENT (UR) CULT NOT INDICATED; CULTURE IF INDICATED CULT NOT INDICATED; GLUCOSE,URINE NEG (NEG); KETONE, URINE TRACE mg/dL (NEG); MUCUS URINE MANY /lpf (OCC); NITRITE,URINE NEG (NEG); SQUAMOUS EPITHELIAL CELL URINE 5 /hpf (0-5); URINE COLOR YELLOW (YELLW/STRAW)
[2017-09-21 16:03] LABS: ALT (GPT) 14 U/L (10-53); ANION GAP 6 MEQ/L (5-15); AST (GOT) 7 U/L (15-37); BICARBONATE 26.6 MEQ/L (21.0-32.0); BLOOD UREA NITROGEN 12 MG/DL (7-18); CHLORIDE 107 MEQ/L (98-107); GLOMERULAR FILTRATION RATE 93 ML/MIN (>89); POTASSIUM 3.6 MEQ/L (3.5-5.1); SODIUM (NA) 140 MEQ/L (136-145)
[2017-09-21 16:05] LABS: ALKALINE PHOSPHATASE 68 U/L (45-117); TOTAL BILIRUBIN ADULT 0.6 MG/DL (0.2-1.0)
[2017-09-21] MEDS ORDERED: FAMOTIDINE 20 MG/2 ML VIAL IV PUSH ONE (16:30)
[2017-09-21] MEDS ORDERED: MORPHINE SULFATE 4 MG/ML INJ IV PUSH ONE (16:30)
[2017-09-21] MEDS ORDERED: ONDANSETRON HCL 4 MG/2 ML VIAL IVP ONE (16:30)
[2017-09-21] MEDS ORDERED: SODIUM CHLOR 0.9% 1000 ML INJ 1,000 ML IV ONE (16:30)
--- NOTE | 2017-09-21 16:32 | PD ---
HPI Chief Complaint: Abdominal Pain Time Seen by Provider: 16:11 Travel History International Travel<30 days: No Contact w/Intl Traveler<30days: No Traveled to known affect area: No History of Present Illness HPI Patient is a 32-year-old female with history of gastric sleeve performed [address] Ziegler at [facility], presents to the ER with complaints of abdominal pain. Patient reports that she has had upper abdominal pain with associated nausea and vomiting for the past 2 days, reports that nothing makes pain better or worse. Reports overall decreased PO intake due to pain and nausea. Denies diarrhea or constipation. Denies any sick contacts, denies any recent travels/trips. Denies any fever/chills. Reports constant mild to moderate upper abdominal pain which is unrelenting in nature PFSH Past Medical History Asthma: Yes Anxiety: Yes Depression: Yes Diminished Hearing: No Gastrointestinal Disorders: Yes (GASTRIC SLEEVE) Respiratory: Yes (ASTHMA) Immunizations Current: Yes ?: Not LMP: 09/08/2017 : 2 Para: 2 Past Surgical History Abdominal Surgery: Yes (SLEEVE WEIGHLOSS IN DEC) Section: Yes (X 2) Social History Alcohol Use: Yes (OCCASSIONALLY) Tobacco Use: Yes (1/2 PPD) Substance Use: No Allergies-Medications (Allergen,Severity, Reaction): Coded Allergies: No Known Allergies (Unverified , 03/23/17) Reported Meds & Prescriptions Reported Meds & Active Scripts Active Active Prescriptions or Reported Medications Unobtainable Review of Systems General / Constitutional: No: Fever, Chills Eyes: No: Visual changes HENT: No: Headaches Cardiovascular: No: Chest Pain or Discomfort Respiratory: No: Shortness of Breath Gastrointestinal: Positive: Nausea, Vomiting, Abdominal Pain, No: Diarrhea Genitourinary: No: Dysuria Musculoskeletal: No: Pain Skin: No Rash Neurologic: No: Weakness Psychiatric: No: Depression Endocrine: No: Polydipsia Hematologic/Lymphatic: No: Easy Bruising Physical Exam Narrative GENERAL: moderate distress SKIN: Focused skin assessment warm/dry. HEAD: Atraumatic. Normocephalic. EYES: Pupils equal and round. No scleral icterus. No injection or drainage. ENT: No nasal bleeding or discharge. Mucous membranes pink and moist. NECK: Trachea midline. No JVD. CARDIOVASCULAR: Regular rate and rhythm. No murmur appreciated. RESPIRATORY: No accessory muscle use. Clear to auscultation. Breath sounds equal bilaterally. GASTROINTESTINAL: Abdomen soft, increased tenderness to upper abdomen with no rebound or guarding on exam, nondistended. Hepatic and splenic margins not palpable. MUSCULOSKELETAL: No obvious deformities. No clubbing. No cyanosis. No edema. NEUROLOGICAL: Awake and alert. Normal speech. PSYCHIATRIC: Appropriate mood and affect; insight and judgment normal. Data Data Last Documented VS Vital Signs Date Time Temp Pulse Resp B/P (MAP) Pulse Ox O2 Delivery O2 Flow Rate FiO2 09/21/17 14:09 98.6 74 12 165/75 (105) 99 Orders Orders Complete Blood Count With Diff (09/21/17 14:39) Comprehensive Metabolic Panel (09/21/17 14:39) Lipase (09/21/17 14:39) Urinalysis - C+S If Indicated (09/21/17 14:39) Iv Access Insert/Monitor (09/21/17 14:39) Ecg Monitoring (09/21/17 14:39) Oximetry (09/21/17 14:39) Sodium Chloride 0.9% Flush (Ns Flush) (09/21/17 14:45) Ed Urine Pregnancytest Poc (09/21/17 14:39) Ct Abd/Pel W Iv Contrast(Rout) (09/21/17 16:23) Sodium Chlor 0.9% 1000 Ml Inj (Ns 1000 M (09/21/17 16:30) Morphine Inj (Morphine Inj) (09/21/17 16:30) Ondansetron Inj (Zofran Inj) (09/21/17 16:30) Famotidine Inj (Pepcid Inj) (09/21/17 16:30) Oral Contrast - Adult (09/21/17 16:29) Labs Laboratory Tests Test 09/21/17 14:50 09/21/17 15:10 Urine Color YELLOW Urine Turbidity HAZY Urine pH 6.0 Urine Specific [place] 1.043 Urine Protein 30 mg/dL Urine Glucose (UA) NEG mg/dL Urine Ketones TRACE mg/dL Urine Occult Blood NEG Urine Nitrite NEG Urine Bilirubin NEG Urine Urobilinogen 2.0 MG/DL Urine Leukocyte Esterase NEG Urine RBC 1 /hpf Urine WBC 3 /hpf Urine Squamous Epithelial Cells 5 /hpf Urine Amorphous Sediment RARE Urine Mucus MANY /lpf Microscopic Urinalysis Comment CULT NOT INDICATED White Blood Count 6.1 TH/MM3 Red Blood Count 3.75 MIL/MM3 Hemoglobin 11.1 GM/DL Hematocrit 33.8 % Mean Corpuscular Volume 90.1 FL Mean Corpuscular Hemoglobin 29.7 PG Mean Corpuscular Hemoglobin Concent 32.9 % Red Cell Distribution Width 14.9 % Platelet Count 275 TH/MM3 Mean Platelet Volume 7.6 FL Neutrophils (%) (Auto) 55.3 % Lymphocytes (%) (Auto) 34.1 % Monocytes (%) (Auto) 6.8 % Eosinophils (%) (Auto) 3.1 % Basophils (%) (Auto) 0.7 % Neutrophils # (Auto) 3.3 TH/MM3 Lymphocytes # (Auto) 2.1 TH/MM3 Monocytes # (Auto) 0.4 TH/MM3 Eosinophils # (Auto) 0.2 TH/MM3 Basophils # (Auto) 0.0 TH/MM3 CBC Comment DIFF FINAL Differential Comment Blood Urea Nitrogen 12 MG/DL Creatinine 0.85 MG/DL Random Glucose 100 MG/DL Total Protein 7.5 GM/DL Albumin 3.3 GM/DL Calcium Level 9.0 MG/DL Alkaline Phosphatase 68 U/L Aspartate Amino Transf (AST/SGOT) 7 U/L Alanine Aminotransferase (ALT/SGPT) 14 U/L Total Bilirubin 0.6 MG/DL Sodium Level 140 MEQ/L Potassium Level 3.6 MEQ/L Chloride Level 107 MEQ/L Carbon Dioxide Level 26.6 MEQ/L Anion Gap 6 MEQ/L Estimat Glomerular Filtration Rate 93 ML/MIN Lipase 132 U/L MDM Medical Decision Making Medical Screen Exam Complete: Yes Emergency Medical Condition: Yes Medical Record Reviewed: Yes Interpretation(s) Vital Signs Date Time Temp Pulse Resp B/P (MAP) Pulse Ox O2 Delivery O2 Flow Rate FiO2 09/21/17 14:09 98.6 74 12 165/75 (105) 99 Differential Diagnosis Pancreatitis, cholecystitis, gastritis, gastroenteritis, small bowel obstruction Narrative Course During the course of the patients emergency department visit, the patients history, examination, and differential diagnosis were reviewed with the patient. The patient was placed on a solar site assessment specialist with oximetry and frequent blood pressure monitoring. The patient had a 20 gauge IV access obtained and blood work sent for analysis. The patient was initially provided IVF, IV zofran, IV morphine The patients laboratory studies were reviewed and remarkable for: CBC & BMP Diagram 09/21/17 15:10 Total Protein 7.5, Albumin 3.3 L, Calcium Level 9.0, Alkaline Phosphatase 68, Aspartate Amino Transf (AST/SGOT) 7 L, Alanine Aminotransferase (ALT/SGPT) 14, Total Bilirubin 0.6 lipase 132 UA: trace ketones, 3wbc, 1rbc, neg nitrite, neg leuk esterase Radiology studies pending: Patient signed out to Dr. Jennings at change of shift Patient Instructions: General Instructions Additional Instructions: Please provide patient with a copy of their lab work and studies at discharge* * Please follow up with your primary care doctor in 2-3 days Return to the ER if symptoms worsen or progress Return to the ER as needed Scripts No Active Prescriptions or Reported Meds Renetta Ibarra DO Sep 21, 2017 16:32
[2017-09-21] MEDS ORDERED: DIATRIZOATE MEGLUM/DIATRIZOATE SOD 9 ML CUP ONE (16:57)
--- NOTE | 2017-09-21 19:40 | RADRPT ---
EXAM DATE/TIME: 09/21/2017 19:16 [facility] COMPARISON: No previous studies available for comparison. INDICATIONS : Abdomen pain with nausea and vomiting. IV CONTRAST: 100 cc Omnipaque 350 (iohexol) IV ORAL CONTRAST: No oral contrast ingested. RADIATION DOSE: 32.85 CTDIvol (mGy) ; Patient body habitus MEDICAL HISTORY : Asthma SURGICAL HISTORY : Gastric bypass. section. ENCOUNTER: Initial ACUITY: 1 day PAIN SCALE: 10/10 LOCATION: Bilateral abdomen TECHNIQUE: Volumetric scanning of the abdomen and pelvis was performed. Using automated exposure control and adjustment of the mA and/or kV according to patient size, radiation dose was kept as low as reasonably achievable to obtain optimal diagnostic quality images. DICOM format image data is av ailable electronically for review and comparison. FINDINGS: LOWER LUNGS: The visualized lower lungs are clear. LIVER: Homogeneous density without lesion. There is no dilation of the biliary tree. No calcifi ed gallstones. SPLEEN: Normal size without lesion. PANCREAS: Within normal limits. KIDNEYS: Normal in size and shape. There is no mass, stone or hydronephrosis. ADRENAL GLANDS: Within normal limits. VASCULAR: There is no aortic aneurysm. BOWEL/MESENTERY: The patient is status post gastric bypass surgery. The stomach, small bowel, and colon demonstrate no acute abnormality. There is no free intraperitoneal air or fluid. The appendix is normal. ABDOMINAL WALL: Small umbilical hernia containing only fat is noted. RETROPERITONEUM: There is no lymphadenopathy. BLADDER: No wall thickening or mass. REPRODUCTIVE: Within normal limits. INGUINAL: There is no lymphadenopathy or hernia. MUSCULOSKELETAL: Within normal limits for patient age. CONCLUSION: 1. Small umbilical hernia containing only fat. 2. No acute intra-abdominal process. Jani Gould MD on September 21, 2017 at 19:36 Board Certified Radiologist. This report was verified electronically.
[2017-09-21] MEDS ORDERED: ZOFR4TAB3 SL (19:52)
--- NOTE | 2017-09-21 19:53 | PD ---
Physical Exam Narrative Patient was seen by ED physician and signed out to me. Data Data Last Documented VS Vital Signs Date Time Temp Pulse Resp B/P (MAP) Pulse Ox O2 Delivery O2 Flow Rate FiO2 09/21/17 14:09 98.6 74 12 165/75 (105) 99 Orders Orders Complete Blood Count With Diff (09/21/17 14:39) Comprehensive Metabolic Panel (09/21/17 14:39) Lipase (09/21/17 14:39) Urinalysis - C+S If Indicated (09/21/17 14:39) Iv Access Insert/Monitor (09/21/17 14:39) Ecg Monitoring (09/21/17 14:39) Oximetry (09/21/17 14:39) Sodium Chloride 0.9% Flush (Ns Flush) (09/21/17 14:45) Ed Urine Pregnancytest Poc (09/21/17 14:39) Ct Abd/Pel W Iv Contrast(Rout) (09/21/17 16:23) Sodium Chlor 0.9% 1000 Ml Inj (Ns 1000 M (09/21/17 16:30) Morphine Inj (Morphine Inj) (09/21/17 16:30) Ondansetron Inj (Zofran Inj) (09/21/17 16:30) Famotidine Inj (Pepcid Inj) (09/21/17 16:30) Oral Contrast - Adult (09/21/17 16:29) Diatrizoate Liq ( Gastroview Liq) (09/21/17 16:57) Iohexol 350 Inj (Omnipaque 350 Inj) (09/21/17 14:06) Labs Laboratory Tests Test 09/21/17 14:50 09/21/17 15:10 Urine Color YELLOW Urine Turbidity HAZY Urine pH 6.0 Urine Specific [place] 1.043 Urine Protein 30 mg/dL Urine Glucose (UA) NEG mg/dL Urine Ketones TRACE mg/dL Urine Occult Blood NEG Urine Nitrite NEG Urine Bilirubin NEG Urine Urobilinogen 2.0 MG/DL Urine Leukocyte Esterase NEG Urine RBC 1 /hpf Urine WBC 3 /hpf Urine Squamous Epithelial Cells 5 /hpf Urine Amorphous Sediment RARE Urine Mucus MANY /lpf Microscopic Urinalysis Comment CULT NOT INDICATED White Blood Count 6.1 TH/MM3 Red Blood Count 3.75 MIL/MM3 Hemoglobin 11.1 GM/DL Hematocrit 33.8 % Mean Corpuscular Volume 90.1 FL Mean Corpuscular Hemoglobin 29.7 PG Mean Corpuscular Hemoglobin Concent 32.9 % Red Cell Distribution Width 14.9 % Platelet Count 275 TH/MM3 Mean Platelet Volume 7.6 FL Neutrophils (%) (Auto) 55.3 % Lymphocytes (%) (Auto) 34.1 % Monocytes (%) (Auto) 6.8 % Eosinophils (%) (Auto) 3.1 % Basophils (%) (Auto) 0.7 % Neutrophils # (Auto) 3.3 TH/MM3 Lymphocytes # (Auto) 2.1 TH/MM3 Monocytes # (Auto) 0.4 TH/MM3 Eosinophils # (Auto) 0.2 TH/MM3 Basophils # (Auto) 0.0 TH/MM3 CBC Comment DIFF FINAL Differential Comment Blood Urea Nitrogen 12 MG/DL Creatinine 0.85 MG/DL Random Glucose 100 MG/DL Total Protein 7.5 GM/DL Albumin 3.3 GM/DL Calcium Level 9.0 MG/DL Alkaline Phosphatase 68 U/L Aspartate Amino Transf (AST/SGOT) 7 U/L Alanine Aminotransferase (ALT/SGPT) 14 U/L Total Bilirubin 0.6 MG/DL Sodium Level 140 MEQ/L Potassium Level 3.6 MEQ/L Chloride Level 107 MEQ/L Carbon Dioxide Level 26.6 MEQ/L Anion Gap 6 MEQ/L Estimat Glomerular Filtration Rate 93 ML/MIN Lipase 132 U/L MDM Supervised Visit with LEE: No Interpretation(s) Last Impressions Abdomen/Pelvis CT 09/21/17 1623 Signed Impressions: Service Date/Time: Thursday, September 21, 2017 19:16 - CONCLUSION: 1. Small umbilical hernia containing only fat. 2. No acute intra-abdominal process. Jani Gould MD 1947 PM. CBC within normal limit. CMP within normal limit. UA is negative. Diagnosis Primary Impression: Gastroenteritis Patient Instructions: General Instructions Additional Instruction: Please provide patient with a copy of their lab work and studies at discharge* * Please follow up with your primary care doctor in 2-3 days Return to the ER if symptoms worsen or progress Return to the ER as needed Clear fluids tonight and tomorrow morning. Advance diet as tolerated. Take medication as needed. Follow-up with local physician as directed. Scripts Ondansetron Odt (Zofran Odt) 4 Mg Tab 4 MG SL Q6HR Y for Nausea/Vomiting, #10 TAB 0 Refills Prov: Kenyon Jennings MD 09/21/17 Disposition: 01 DISCHARGE HOME Condition: Stable Kenyon Jennings MD Sep 21, 2017 19:53
== END 2017-09-21 20:17 | disposition home or self-care (01) ==
LOC: NEPD 14:05
DX: K52.9 Noninfective gastroenteritis and colitis, unspecified (principal); K42.9 Umbilical hernia without obstruction or gangrene
CPT/HCPCS: 74177; 80053; 81001; 83690; 84703; 85025; 96374; 96375; 99285; J2270; J2405; J7030; Q9963; Q9967

== ENCOUNTER 2018-02-03 13:15 | Emergency (ER) | payer MEDICAID, OTHER ==
[~2018-02-03] VITALS: Ht 160 cm; Wt 135.6 kg
[~2018-02-03 13:15] MED LIST changes: -IBUP-232 PO; -VARE.5 PO; +ZOFR4TAB3 SL
[2018-02-03 13:18] VITALS: BP 192/93; PULSE 99; RESP 20; TEMP 98.4; O2SAT 100
--- NOTE | 2018-02-03 13:39 | PD ---
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 She states that after she felt the discomfort, she looked in her plate and did see some shrimp. She had tried to use her albuterol without significant improvement. She states that she feels out of it. She denies shortness of breath or other issues currently. She has had similar issues with shrimp in the past. Modifying Factors: None Associated Signs & Symptoms: Allergic reaction to shrimp e Risk Factors: Previous history of allergic reaction PFSH Past Medical History Asthma: Yes Anxiety: Yes Depression: Yes Diminished Hearing: No Gastrointestinal Disorders: Yes (GASTRIC SLEEVE) Respiratory: Yes (ASTHMA) Immunizations Current: Yes ?: Not LMP: 01/28/18 : 2 Para: 2 Past Surgical History Abdominal Surgery: Yes (SLEEVE WEIGHLOSS IN DEC) Section: Yes (X 2) Social History Alcohol Use: Yes (OCCASSIONALLY) Tobacco Use: Yes (1/2 PPD) Substance Use: No Allergies-Medications (Allergen,Severity, Reaction): Coded Allergies: shrimp (Verified Allergy, Severe, Anaphylaxis, 02/03/18) Reported Meds & Prescriptions Reported Meds & Active Scripts Active No Active Prescriptions or Reported Medications Review of Systems Except as stated in HPI: all other systems reviewed are Neg Physical Exam Narrative GENERAL: Well-developed young -Serbian female patient currently in mild distress, constantly clearing her throat. Awake and oriented 3. SKIN: Focused skin assessment warm/dry. HEAD: Atraumatic. Normocephalic. EYES: Pupils equal and round. No scleral icterus. No injection or drainage. ENT: Mucosa pink and moist. No erythema or exudates. No uvular edema. No uvular , palatal, or tonsillar deviation. Airway patent. NECK: Trachea midline. No JVD. CARDIOVASCULAR: Regular rate and rhythm. No murmur appreciated. RESPIRATORY: No accessory muscle use. Clear to auscultation. Breath sounds equal bilaterally. GASTROINTESTINAL: Abdomen soft, non-tender, nondistended. Hepatic and splenic margins not palpable. MUSCULOSKELETAL: No obvious deformities. No clubbing. No cyanosis. No edema. NEUROLOGICAL: Awake and alert. No obvious cranial nerve deficits. Motor grossly within normal limits. Normal speech. PSYCHIATRIC: Appropriate mood and affect; insight and judgment normal. Data Data Last Documented VS Vital Signs Date Time Temp Pulse Resp B/P (MAP) Pulse Ox O2 Delivery O2 Flow Rate FiO2 02/03/18 13:45 100 Room Air 02/03/18 13:43 81 194/102 02/03/18 13:30 18 02/03/18 13:18 98.4 Orders Orders Basic Metabolic Panel (Bmp) (02/03/18 13:33) Complete Blood Count With Diff (02/03/18 13:33) Ecg Monitoring (02/03/18 13:33) Iv Access Insert/Monitor (02/03/18 13:33) Oximetry (02/03/18 13:33) Diphenhydramine Inj (Benadryl Inj) (02/03/18 13:45) Methylprednisolone So Succ Inj (Solumedr (02/03/18 13:45) Famotidine Inj (Pepcid Inj) (02/03/18 13:45) Sodium Chloride 0.9% Flush (Ns Flush) (02/03/18 13:45) Epinephrine (1:1000) Inj (Adrenalin (1:1 (02/03/18 13:45) Albuterol Neb (Albuterol Neb) (02/03/18 13:45) Labs Laboratory Tests Test 02/03/18 13:50 White Blood Count 4.8 TH/MM3 Red Blood Count 3.82 MIL/MM3 Hemoglobin 10.4 GM/DL Hematocrit 32.8 % Mean Corpuscular Volume 85.8 FL Mean Corpuscular Hemoglobin 27.1 PG Mean Corpuscular Hemoglobin Concent 31.6 % Red Cell Distribution Width 13.1 % Platelet Count 390 TH/MM3 Mean Platelet Volume 7.6 FL Neutrophils (%) (Auto) 38.7 % Lymphocytes (%) (Auto) 49.3 % Monocytes (%) (Auto) 6.7 % Eosinophils (%) (Auto) 3.2 % Basophils (%) (Auto) 2.1 % Neutrophils # (Auto) 1.8 TH/MM3 Lymphocytes # (Auto) 2.4 TH/MM3 Monocytes # (Auto) 0.3 TH/MM3 Eosinophils # (Auto) 0.2 TH/MM3 Basophils # (Auto) 0.1 TH/MM3 CBC Comment DIFF FINAL Differential Comment Blood Urea Nitrogen 7 MG/DL Creatinine 0.71 MG/DL Random Glucose 86 MG/DL Calcium Level 9.1 MG/DL Sodium Level 141 MEQ/L Potassium Level 3.5 MEQ/L Chloride Level 106 MEQ/L Carbon Dioxide Level 25.4 MEQ/L Anion Gap 10 MEQ/L Estimat Glomerular Filtration Rate 115 ML/MIN MDM Medical Decision Making Medical Screen Exam Complete: Yes Emergency Medical Condition: Yes Medical Record Reviewed: Yes Interpretation(s) Laboratory Tests Test 02/03/18 13:50 Red Blood Count 3.82 MIL/MM3 (4.00-5.30) Hemoglobin 10.4 GM/DL (11.6-15.3) Hematocrit 32.8 % (35.0-46.0) Mean Corpuscular Hemoglobin Concent 31.6 % (32.0-36.0) Lymphocytes (%) (Auto) 49.3 % (9.0-44.0) Basophils (%) (Auto) 2.1 % (0.0-2.0) Differential Diagnosis Allergic reaction Narrative Course Patient was given albuterol, Solu-Medrol,, Solu-Medrol, IM epi, and Zantac in the ER for treatment. Patient was observed in the ER over 2-1/2 hours, was doing well, felt like the symptoms were subsiding. 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 At this point, patient is released with directions to return for any worsening in symptoms. Patient is directed to go picker box operator prescriptions immediately after leaving in order to give herself immediate treatment should she need it. Plan was discussed with her and she states understanding. Diagnosis Primary Impression: Allergic reaction Med/Other Pt SpecificInfo: Prescription(s) given Scripts Diphenhydramine (Diphenhydramine) 25 Mg Tab 25 MG PO Q6H Y for ALLERGIES, #20 TAB 0 Refills Prov: Amy De Santiago MD 02/03/18 Epinephrine Inj (Epinephrine Inj) 0.3 Mg/0.3 Ml Pfpen 0.3 MG IM ONCE Y for ALLERGIC REACTION, #1 PEN 0 Refills Prov: Soonthselamthai,Rewadee MD 02/03/18 Prednisone (Prednisone) 50 Mg Tab 50 MG PO DAILY for 5 Days, #5 TAB 0 Refills Prov: Amy De Santiago MD 02/03/18 Disposition: 01 DISCHARGE HOME Condition: Stable Amy De Santiago MD Feb 03, 2018 13:39
[2018-02-03 13:45] VITALS: O2SAT 100
[2018-02-03] MEDS ORDERED: RESP: ALBUTEROL 2.5 MG/3 ML NEB (SCH) INH ONE (13:45)
[2018-02-03] MEDS ORDERED: methylPREDNISolone SOD SUCC 125 MG/2 ML VIAL IV PUSH ONE (13:45)
[2018-02-03] MEDS ORDERED: FAMOTIDINE 20 MG/2 ML VIAL IV PUSH ONE (13:45)
[2018-02-03] MEDS ORDERED: diphenhydrAMINE HCL 50 MG/ML VIAL IVP ONE (13:45)
[2018-02-03] MEDS ORDERED: SODIUM CHLORIDE 0.9% FLUSH 10 ML FLUSH IV FLUSH PRN (13:45)
[2018-02-03] MEDS ORDERED: EPINEPHrine HCL (1:1000) 1 MG/ML VIAL IM ONE (13:45)
[2018-02-03 14:21] LABS: AUTOMATED NEUTROPHIL # 1.8 TH/MM3 (1.8-7.7); BASOPHIL # 0.1 TH/MM3 (0-0.2); BASOPHIL % 2.1 % (0.0-2.0); EOSINOPHIL # 0.2 TH/MM3 (0-0.4); EOSINOPHIL % 3.2 % (0.0-4.0); HEMATOCRIT 32.8 % (35.0-46.0); HEMOGLOBIN 10.4 GM/DL (11.6-15.3); LYMPH % 49.3 % (9.0-44.0); LYMPHOCYTE # 2.4 TH/MM3 (1.0-4.8); MEAN CELL VOLUME 85.8 FL (80.0-100.0); MEAN CORPUSCULAR HEMOGLOBIN 27.1 PG (27.0-34.0); MEAN CORPUSCULAR HGB CONC 31.6 % (32.0-36.0); MEAN PLATELET VOLUME 7.6 FL (7.0-11.0); MONO % 6.7 % (0.0-8.0); MONOCYTE # 0.3 TH/MM3 (0-0.9); NEUT % 38.7 % (16.0-70.0); PLATELET COUNT 390 TH/MM3 (150-450); RED BLOOD COUNT 3.82 MIL/MM3 (4.00-5.30); RED CELL DISTRIBUTION WIDTH 13.1 % (11.6-17.2); WHITE BLOOD COUNT 4.8 TH/MM3 (4.0-11.0)
[2018-02-03 14:33] LABS: BICARBONATE 25.4 MEQ/L (21.0-32.0); CALCIUM 9.1 MG/DL (8.5-10.1)
[2018-02-03 14:37] LABS: CREATININE 0.71 MG/DL (0.50-1.00)
[2018-02-03] MEDS ORDERED: PRED50 PO (15:43)
[2018-02-03] MEDS ORDERED: EPIN1INJ17 IM (15:43)
[2018-02-03] MEDS ORDERED: DIPH25TA2 PO (15:43)
[2018-02-03 16:20] VITALS: BP 147/105; PULSE 78; RESP 18; O2SAT 99
== END 2018-02-03 16:30 | disposition home or self-care (01) ==
LOC: PHED 13:15
DX: T78.1XXA Other adverse food reactions, not elsewhere classified, initial encounter (principal); J45.909 Unspecified asthma, uncomplicated; F41.9 Anxiety disorder, unspecified; F32.9 Major depressive disorder, single episode, unspecified; F17.200 Nicotine dependence, unspecified, uncomplicated
CPT/HCPCS: 80048; 85025; 94664; 96372; 96374; 96375; 99284; J0171; J1200; J2930; J7613

== ENCOUNTER 2018-02-05 00:54 | Emergency (ER) | payer OTHER ==
[~2018-02-05] VITALS: Ht 160 cm; Wt 136.0 kg
[~2018-02-05 00:54] MED LIST changes: +DIPH25TA2 PO; +EPIN1INJ17 IM; +PRED50 PO; -ZOFR4TAB3 SL
[2018-02-05 00:59] VITALS: BP 179/83; PULSE 82; RESP 18; TEMP 98.4; O2SAT 100
--- NOTE | 2018-02-05 01:46 | PD ---
HPI Chief Complaint: Chest Pain Time Seen by Provider: 01:24 Travel History International Travel<30 days: No Contact w/Intl Traveler<30days: No Traveled to known affect area: No History of Present Illness HPI 32-year-old female complains of chest discomfort and shortness of breath. Patient was seen in emergency room 2 days ago with diagnosis of allergic reaction. Patient was given Benadryl, Solu-Medrol and Pepcid IV. Patient was also given epinephrine IM injection and albuterol treatment. Patient was discharged home with prescription for Benadryl, EpiPen, prednisone. Patient states that she has not filled the prescription for this medication. Patient was seen by her personal physician and given prescription of Zoloft for PTSD. Patient took Zoloft the first dose yesterday and the second dose this evening. Patient started having chest discomfort and shortness of breath subsequently. Patient denies any headache. Patient denies any abdominal pain. Patient denies any itching rash. Patient denies any problems swallowing. PFSH Past Medical History Asthma: Yes Anxiety: Yes Depression: Yes Diminished Hearing: No Gastrointestinal Disorders: Yes (GASTRIC SLEEVE) Respiratory: Yes (ASTHMA) Immunizations Current: Yes Tetanus Vaccination: > 5 Years Influenza Vaccination: No ?: Not LMP: 01/28/2018 : 2 Para: 2 Past Surgical History Abdominal Surgery: Yes (Gastric sleeve ) Section: Yes (X's 2) Social History Alcohol Use: Yes (Occ.) Tobacco Use: Yes (4-5 cigarettes/day) Substance Use: No Allergies-Medications (Allergen,Severity, Reaction): Coded Allergies: shrimp (Verified Allergy, Severe, Anaphylaxis, 02/05/18) Reported Meds & Prescriptions Reported Meds & Active Scripts Active Diphenhydramine (Diphenhydramine HCl) 25 Mg Tab 25 Mg PO Q6H PRN Epinephrine Inj (Epinephrine) 0.3 Mg/0.3 Ml Pfpen 0.3 Mg IM ONCE PRN Prednisone 50 Mg Tab 50 Mg PO DAILY 5 Days Review of Systems General / Constitutional: No: Fever Eyes: No: Visual changes HENT: No: Headaches Cardiovascular: Positive: Chest Pain or Discomfort Respiratory: Positive: Shortness of Breath Gastrointestinal: No: Abdominal Pain Genitourinary: No: Dysuria Musculoskeletal: No: Pain Skin: No Rash Neurologic: No: Weakness Psychiatric: No: Depression Endocrine: No: Polydipsia Hematologic/Lymphatic: No: Easy Bruising Physical Exam Narrative GENERAL: Well-nourished, well-developed patient. SKIN: Focused skin assessment warm/dry. HEAD: Normocephalic. EYES: No scleral icterus. No injection or drainage. NECK: Supple, trachea midline. No JVD or lymphadenopathy. CARDIOVASCULAR: Regular rate and rhythm without murmurs, gallops, or rubs. RESPIRATORY: Breath sounds equal bilaterally. No accessory muscle use. GASTROINTESTINAL: Abdomen soft, non-tender, nondistended. MUSCULOSKELETAL: No cyanosis, or edema. BACK: Nontender without obvious deformity. No CVA tenderness. Neurologic exam normal. Data Data Last Documented VS Vital Signs Date Time Temp Pulse Resp B/P (MAP) Pulse Ox O2 Delivery O2 Flow Rate FiO2 02/05/18 00:59 98.4 82 18 179/83 (115) 100 Orders Orders Electrocardiogram (02/05/18 01:27) Chest, Single Ap (02/05/18 01:27) MDM Medical Decision Making Medical Screen Exam Complete: Yes Emergency Medical Condition: Yes Differential Diagnosis Differential diagnosis including side effect of medication, recurrent allergic reaction. Narrative Course 32-year-old female with chest discomfort and shortness of breath after taking Zoloft this evening. Vital signs stable. Physical exam benign. Diagnosis Primary Impression: Side effect of medication Patient Instructions: General Instructions Additional Instructions: Advised patient to stop taking Zoloft. Follow-up with personal physician. Return if increasing chest pain shortness of breath. Med/Other Pt SpecificInfo: Med Stopped Disposition: DISCHARGE HOME Condition: Stable Kenyon Jennings MD Feb 05, 2018 01:46
--- NOTE | 2018-02-05 01:51 | RADRPT ---
EXAM DATE/TIME: 02/05/2018 01:31 [facility] COMPARISON: CHEST SINGLE AP, June 30, 2017, 0:26. INDICATIONS : Chest pain. MEDICAL HISTORY : Hypertension. SURGICAL HISTORY : Gastric bypass. section. ENCOUNTER: Initial ACUITY: 1 day PAIN SCORE: 10/10 LOCATION: Bilateral chest superior FINDINGS: A single view of the chest demonstrates the lungs to be symmetrically aerated without evidence of mas s, infiltrate or effusion. The cardiomediastinal contours are unremarkable. Osseous structures are intact. CONCLUSION: Normal examination. Geoffrey Nobles Jr., MD on February 05, 2018 at 1:49 Board Certified Radiologist. This report was verified electronically.
--- NOTE | 2018-02-06 00:16 | EKG ---
Date Performed: 02/05/2018 Time Performed: 01:41:59 PTAGE: 32 years EKG: Sinus rhythm NORMAL ECG PREVIOUS TRACING : 06/29/2017 23.44 Since the previous tracing, no significant change noted DOCTOR: Ken Cortes Interpretating Date/Time 02/06/2018 00:15:39
== END 2018-02-05 02:17 | disposition home or self-care (01) ==
LOC: NEPC 00:54
DX: T43.225A Adverse effect of selective serotonin reuptake inhibitors, initial encounter (principal); R06.02 Shortness of breath; R07.89 Other chest pain; J45.909 Unspecified asthma, uncomplicated; F41.9 Anxiety disorder, unspecified; F32.9 Major depressive disorder, single episode, unspecified; Z72.0 Tobacco use; Z98.84 Bariatric surgery status
CPT/HCPCS: 71045; 93005

== ENCOUNTER 2018-03-26 12:08 | Emergency (ER) | payer OTHER ==
[~2018-03-26] VITALS: Ht 160 cm; Wt 134.0 kg
[2018-03-26 12:13] VITALS: BP 142/96; PULSE 98; RESP 18; TEMP 99.4; O2SAT 99
--- NOTE | 2018-03-26 14:24 | PD ---
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 Patient states she was seen and evaluated at [facility], diagnosed with fibroids. She has not yet followed up with gynecology. She denies any significant pain. She has had a headache over the last 2 days. She denies nausea or vomiting. She has had no focal deficits or weakness. Patient has noted chest tightness or shortness of breath. She has no other symptoms to report. PFSH Past Medical History Asthma: Yes Anxiety: Yes Depression: Yes Diminished Hearing: No Gastrointestinal Disorders: Yes (GASTRIC SLEEVE) Respiratory: Yes (ASTHMA) Immunizations Current: Yes ?: Not LMP: FEBRUARY 2018 : 2 Para: 2 Past Surgical History Abdominal Surgery: Yes (Gastric sleeve ) Section: Yes (X's 2) Social History Alcohol Use: Yes (Occ.) Tobacco Use: Yes (4-5 cigarettes/day) Substance Use: No Allergies-Medications (Allergen,Severity, Reaction): Coded Allergies: shrimp (Verified Allergy, Severe, Anaphylaxis, 03/26/18) Reported Meds & Prescriptions Reported Meds & Active Scripts Active Diphenhydramine (Diphenhydramine HCl) 25 Mg Tab 25 Mg PO Q6H PRN Epinephrine Inj (Epinephrine) 0.3 Mg/0.3 Ml Pfpen 0.3 Mg IM ONCE PRN Prednisone 50 Mg Tab 50 Mg PO DAILY 5 Days Review of Systems Except as stated in HPI: all other systems reviewed are Neg Physical Exam Narrative GENERAL: Well-nourished female patient, no acute distress SKIN: Focused skin assessment warm/dry. HEAD: Atraumatic. Normocephalic. EYES: Pupils equal and round. No scleral icterus. No injection or drainage. ENT: No nasal bleeding or discharge. Mucous membranes pink and moist. NECK: Trachea midline. No JVD. CARDIOVASCULAR: Elevated rate and rhythm. No murmur appreciated. RESPIRATORY: No accessory muscle use. Clear to auscultation. Breath sounds equal bilaterally. GASTROINTESTINAL: Abdomen soft, non-tender, nondistended. No guarding. No rebound tenderness. Hepatic and splenic margins not palpable. GENITOURINARY: Normal external genitalia without lesions or erythema. Vaginal vault with red blood. No other discharge noted. Cervical os was closed without drainage. No cervical motion tenderness. Uterus nontender and nonenlarged. Bilateral adnexa nontender without masses. MUSCULOSKELETAL: No obvious deformities. No clubbing. No cyanosis. No edema. RECTAL EXAM: No masses or tenderness,. No stool in the vaginal vault. NEUROLOGICAL: Awake and alert. No obvious cranial nerve deficits. Motor grossly within normal limits. Normal speech. Data Data Last Documented VS Vital Signs Date Time Temp Pulse Resp B/P (MAP) Pulse Ox O2 Delivery O2 Flow Rate FiO2 03/26/18 14:16 18 03/26/18 12:13 99.4 98 142/96 (111) 99 Orders Orders Iv Access Insert/Monitor (03/26/18 14:22) Complete Blood Count With Diff (03/26/18 14:22) Basic Metabolic Panel (Bmp) (03/26/18 14:22) Coag Profile (03/26/18 14:22) Type And Screen (03/26/18 14:22) Sodium Chlor 0.9% 1000 Ml Inj (Ns 1000 M (03/26/18 14:30) Ketorolac Inj (Toradol Inj) (03/26/18 15:45) Ed Discharge Order (03/26/18 15:38) Labs Laboratory Tests Test 03/26/18 14:50 White Blood Count 7.6 TH/MM3 Red Blood Count 3.78 MIL/MM3 Hemoglobin 10.6 GM/DL Hematocrit 32.4 % Mean Corpuscular Volume 85.6 FL Mean Corpuscular Hemoglobin 28.0 PG Mean Corpuscular Hemoglobin Concent 32.7 % Red Cell Distribution Width 15.6 % Platelet Count 380 TH/MM3 Mean Platelet Volume 7.5 FL Neutrophils (%) (Auto) 52.6 % Lymphocytes (%) (Auto) 39.4 % Monocytes (%) (Auto) 5.7 % Eosinophils (%) (Auto) 1.5 % Basophils (%) (Auto) 0.8 % Neutrophils # (Auto) 4.0 TH/MM3 Lymphocytes # (Auto) 3.0 TH/MM3 Monocytes # (Auto) 0.4 TH/MM3 Eosinophils # (Auto) 0.1 TH/MM3 Basophils # (Auto) 0.1 TH/MM3 CBC Comment DIFF FINAL Differential Comment Prothrombin Time 11.1 SEC Prothromb Time International Ratio 1.1 RATIO Activated Partial Thromboplast Time 28.7 SEC Blood Urea Nitrogen 7 MG/DL Creatinine 1.09 MG/DL Random Glucose 94 MG/DL Calcium Level 8.9 MG/DL Sodium Level 138 MEQ/L Potassium Level 3.7 MEQ/L Chloride Level 106 MEQ/L Carbon Dioxide Level 22.6 MEQ/L Anion Gap 9 MEQ/L Estimat Glomerular Filtration Rate 70 ML/MIN MDM Medical Decision Making Medical Screen Exam Complete: Yes Emergency Medical Condition: Yes Medical Record Reviewed: Yes Differential Diagnosis Dysfunctional uterine bleeding versus menses versus anemia versus fibroid Narrative Course 32-year-old female presents emergency department for evaluation of vaginal bleeding. Patient does have vaginal bleeding however vital signs are stable. Lab work is without acute concern. Hemoccult stool was also negative. Patient is counseled on care. 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 She agrees to return immediately with acute worsening symptoms. 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
[2018-03-26] MEDS ORDERED: SODIUM CHLOR 0.9% 1000 ML INJ 1,000 ML IV ONE (14:30)
[2018-03-26 15:13] LABS: BASOPHIL # 0.1 TH/MM3 (0-0.2); BASOPHIL % 0.8 % (0.0-2.0); EOSINOPHIL # 0.1 TH/MM3 (0-0.4); EOSINOPHIL % 1.5 % (0.0-4.0); HEMATOCRIT 32.4 % (35.0-46.0); HEMOGLOBIN 10.6 GM/DL (11.6-15.3); LYMPH % 39.4 % (9.0-44.0); MEAN CELL VOLUME 85.6 FL (80.0-100.0); MEAN CORPUSCULAR HGB CONC 32.7 % (32.0-36.0); MEAN PLATELET VOLUME 7.5 FL (7.0-11.0); MONO % 5.7 % (0.0-8.0); MONOCYTE # 0.4 TH/MM3 (0-0.9); NEUT % 52.6 % (16.0-70.0); PLATELET COUNT 380 TH/MM3 (150-450); RED BLOOD COUNT 3.78 MIL/MM3 (4.00-5.30); RED CELL DISTRIBUTION WIDTH 15.6 % (11.6-17.2); WHITE BLOOD COUNT 7.6 TH/MM3 (4.0-11.0)
[2018-03-26 15:27] LABS: INTERNATIONAL NORMALIZED RATIO 1.1 RATIO; PROTHROMBIN TIME - PATIENT 11.1 SEC (9.8-11.6)
[2018-03-26 15:28] LABS: BICARBONATE 22.6 MEQ/L (21.0-32.0); CALCIUM 8.9 MG/DL (8.5-10.1); CREATININE 1.09 MG/DL (0.50-1.00)
--- NOTE | 2018-03-26 15:38 | PD ---
Physical Exam Date Seen by Provider: Mar 26, 2018 Narrative This patient presents with a chief complaint of vaginal bleeding for the last month. She is also complaining with a headache. Data Data Last Documented VS Vital Signs Date Time Temp Pulse Resp B/P (MAP) Pulse Ox O2 Delivery O2 Flow Rate FiO2 03/26/18 14:16 18 03/26/18 12:13 99.4 98 142/96 (111) 99 Orders Orders Iv Access Insert/Monitor (03/26/18 14:22) Complete Blood Count With Diff (03/26/18 14:22) Basic Metabolic Panel (Bmp) (03/26/18 14:22) Coag Profile (03/26/18 14:22) Type And Screen (03/26/18 14:22) Sodium Chlor 0.9% 1000 Ml Inj (Ns 1000 M (03/26/18 14:30) Labs Laboratory Tests Test 03/26/18 14:50 White Blood Count 7.6 TH/MM3 Red Blood Count 3.78 MIL/MM3 Hemoglobin 10.6 GM/DL Hematocrit 32.4 % Mean Corpuscular Volume 85.6 FL Mean Corpuscular Hemoglobin 28.0 PG Mean Corpuscular Hemoglobin Concent 32.7 % Red Cell Distribution Width 15.6 % Platelet Count 380 TH/MM3 Mean Platelet Volume 7.5 FL Neutrophils (%) (Auto) 52.6 % Lymphocytes (%) (Auto) 39.4 % Monocytes (%) (Auto) 5.7 % Eosinophils (%) (Auto) 1.5 % Basophils (%) (Auto) 0.8 % Neutrophils # (Auto) 4.0 TH/MM3 Lymphocytes # (Auto) 3.0 TH/MM3 Monocytes # (Auto) 0.4 TH/MM3 Eosinophils # (Auto) 0.1 TH/MM3 Basophils # (Auto) 0.1 TH/MM3 CBC Comment DIFF FINAL Differential Comment Prothrombin Time 11.1 SEC Prothromb Time International Ratio 1.1 RATIO Activated Partial Thromboplast Time 28.7 SEC Blood Urea Nitrogen 7 MG/DL Creatinine 1.09 MG/DL Random Glucose 94 MG/DL Calcium Level 8.9 MG/DL Sodium Level 138 MEQ/L Potassium Level 3.7 MEQ/L Chloride Level 106 MEQ/L Carbon Dioxide Level 22.6 MEQ/L Anion Gap 9 MEQ/L Estimat Glomerular Filtration Rate 70 ML/MIN [facility] Supervised Visit with LEE: Yes Narrative Course I, Dr. Whitley, have reviewed the advance practice practitioner's documentation and am in agreement, met with the patient face to face, made the diagnosis, and the medical decision making was done by me. *My assessment and Findings: The patient's vital signs are unremarkable and her hemoglobin is stable from previous. Please see Mell Bobby DNP's note for a more detailed H&P, final diagnosis and disposition Joseline Whitley MD Mar 26, 2018 15:38
[2018-03-26] MEDS ORDERED: KETOROLAC TROMETHAMINE 30 MG/ML (IVP) VIAL IV PUSH ONE (15:45)
== END 2018-03-26 16:15 | disposition home or self-care (01) ==
LOC: NEPD 12:08
DX: N93.9 Abnormal uterine and vaginal bleeding, unspecified (principal); R51 Headache; J45.909 Unspecified asthma, uncomplicated; F32.9 Major depressive disorder, single episode, unspecified; F17.210 Nicotine dependence, cigarettes, uncomplicated; Z98.84 Bariatric surgery status; Z79.899 Other long term (current) drug therapy
CPT/HCPCS: 80048; 85025; 85610; 85730; 86850; 86900; 86901; 96374; 99284; J1885; J7030